=== PATIENT | male | born 1950 | race Caucasian/White ===

== ENCOUNTER → 2021-02-25 | Outpatient (CLI) | payer MEDICARE, OTHER ==
--- NOTE | 2021-02-25 11:07 | KCIC ---
MRI of the lumbar spine without contrast 02/25/2021 CLINICAL HISTORY: New onset of low back pain with leg pain and numbness for 2 weeks. TECHNIQUE: Unenhanced T1-weighted and T2-weighted sagittal and axial and inversion recovery sagittal images of the lumbar spine were obtained. FINDINGS: Minimal S-shaped curvature of the thoracolumbar spine is seen. Degenerative signal changes are seen involving all of the disks of the lumbar spine. Degenerative signal changes are seen within the marrow surrounding these discs. A 7 mm hemangioma is seen involving the L5 vertebral body. The co nus medullaris is normal morphology, position, and signal characteristics. At the L1-2 and L2-3 disc spaces there are minimal generalized disc bulges. Degenerative changes are seen involving the facet joints bilaterally. There is mild ligamentum flavum hypertrophy bilaterally. These findings when combined do not result in significant central spinal canal or neural foraminal s tenosis. At the L3-4 disc space there is a mild generalized disc bulge. Degenerative changes are seen involvin g the facet joints bilaterally. There is mild ligamentum flavum hypertrophy bilaterally. There is pro minence of the posterior epidural fat. These findings when combined result in mild central spinal can al stenosis. No neural foraminal stenosis is seen. At the L4-5 disc space there is a mild generalized disc bulge. Degenerative changes are seen involvin g the facet joints bilaterally. There is moderate ligamentum flavum hypertrophy bilaterally. There is prominence of the posterior vertebral fat. These findings when combined result in mild to moderate c entral spinal canal stenosis. No neural foraminal stenosis is seen. At the L5-S1 disc space there is a minimal generalized disc bulge. Degenerative changes are seen invo lving the facet joints bilaterally. There is mild ligamentum flavum hypertrophy bilaterally. These fi ndings when combined do not result in significant central spinal canal or neural foraminal stenosis. IMPRESSION: The changes of degenerative disc disease are seen throughout the lumbar spine. These find ings result in mild central spinal canal stenosis at L3-4 and mild to moderate central spinal canal s tenosis at L4-5. No neural foraminal stenosis is seen. Electronically signed by: Bryce Hatfield MD (02/25/2021 11:04 AM) [id number]
== END ==
LOC: KCIC MRI 09:05
PROVIDERS: ATTEND Family Medicine
DX: M51.16 Intervertebral disc disorders with radiculopathy, lumbar region (principal); M48.061 Spinal stenosis, lumbar region without neurogenic claudication
CPT/HCPCS: 72148

== ENCOUNTER → 2021-03-16 | Outpatient (CLI) | payer MEDICARE, OTHER ==
[~2021-03-16] MED LIST: ASCO500C PO; ASPI-630 PO; GARL10002 PO; IOHEXOL 180 MG/ML 10 ML VIAL. ONE; MULT-690 PO; OMEG1CAP6 PO; VITA1TAB19 PO; methylPREDNISolone ACETATE 40 MG/ML VIAL. ONE; methylPREDNISolone ACETATE 80 MG/ML VIAL. ONE
--- NOTE | 2021-03-16 14:17 | PDOC1 ---
INITIAL PAIN CONSULT DATE OF SERVICE: DOS: DATE: 03/16/21 TIME: 14:11 CHIEF COMPLAINT: Chief Complaint: Low back and right lower extremity pain HISTORY OF PRESENT ILLNESS: 70-year-old male presents with history of pain low back right lower extremity since early January 2021 not the result of any specific injury or accident that he is aware of, but has significant pain increasing in the low back and right lower extremity rating the posterior gluteus posterior lateral thigh lateral anterior thigh anteromedial thigh medial lower leg and calf into the foot and toes especially the great toe on the right side. Patient reports it gets worse with walking standing better with sitting or laying down generally does not awaken her from sleep at night but can patient reports it does not affect his bowel bladder control he can only walk about 1 mile usually walks 5 miles a day so it is affecting his walking significantly. Patient tried Aleve as well as tramadol tramadol does help relieve his not he is done physical therapy since November of this year and still does the exercises involved with that which she feels does help to a moderate extent. Patient reports pain is intermittent intensity changes during the day worse with standing walking changing positions better with sitting or laying down tingling pain in the low back and right leg with numbness radiating pain that can be cramping and aching in the back as well as in the leg patient rates disability rating 0-10 10 being the worst is a 6 with family home responsibilities 8 with recreation and sexual activity 5 with social activity to a self-care and 5 with life support activities. Patient did have a MRI scan lumbar spine showing changes of degenerative disc disease throughout lumbar spine resulting in mild central spinal canal stenosis L3-4 mild to moderate central spinal canal stenosis at L4-5. Patient reports no overt motor loss but significant fatigability of the right lower extremity specially with walking. PAST MEDICAL HISTORY: PMH: Irregular heart rhythm, hearing loss PREVIOUS SURGERIES: Past Surgical Hx: None CURRENT MEDICATIONS: Current Meds: Active Scripts Medications Dose Route/Sig Max Daily Dose Days Date Category Fish Oil 1,000 Mg Capsule (Waldron-3 Fatty Acids/Fish Oil) 1 Each Capsule 1 Each PO Q2WKS 03/16/21 Reported Aspirin 81 Mg Tab.chew 1 Tab PO Q2WKS 03/16/21 Reported Garlic 1,000 Mg Capsule 1,000 Mg PO DAILY 03/16/21 Reported Vitamin C (Ascorbic Acid) 500 Mg Capsule.er 1,000 Mg PO DAILY 03/16/21 Reported B Complex (Vitamin B Complex) 1 Each Tablet 1 Tab PO DAILY 30 03/16/21 Reported Centrum Silver Men Tablet (Multivit-Min/FA/Lycopen/Lutein) 1 Each Tablet 1 Each PO DAILY 03/16/21 Reported ALLERGIES; Allergies: Coded Allergies: No Known Drug Allergies (Unverified , 04/13/20) FAMILY HISTORY: Family Hx: Cancers, leukemia SOCIAL HISTORY: Social Hx: Patient does not juaquin alcohol does not smoke or use any illegal illicit or recreational drugs is single lives locally in [facility] and is currently retired. REVIEW OF SYSTEMS: ROS: Positive for those items mentioned in history of present illness, all systems are reviewed, otherwise negative ,and are complete full and well-documented on patient's chart. PHYSICAL EXAM: VS: Blood pressure is 137/75 pulse 83 respirations 18 temperature 97.9 F, 5'11" inches weight 266 pounds PE: PHYSICAL EXAMINATION: GENERAL: The patient is awake, alert, oriented, appropriate, very pleasant in demeanor HEENT: Shows normocephalic, atraumatic. Extraocular movements are intact and symmetrical. Oral cavity: Mucous membranes moist and pink. Dentition is intact. NECK: Shows anterior throat supple without palpable lymphadenopathy noted. Swallow reflex symmetrical. CHEST: Shows normal on inspection. Breath sounds are clear bilaterally, distant but no rales or rhonchi. HEART: Shows S1, S2 clear. No murmurs auscultated. ABDOMEN: Soft, nontender, nondistended, obese. No palpable organomegaly is noted. BACK: Shows spine grossly in the midline. Normal-appearing cervical lordotic curvature. There is mildly increased thoracic kyphosis, some flattening of the lumbar lordotic curvature. Lumbar paraspinous muscles show symmetrical on inspection, on palpation shows some moderate tenderness diffusely throughout the upper, middle and lower distribution of the paraspinous muscles bilaterally and also into the lower thoracic paraspinous musculature, firm and tender, but without specific trigger points, without radiation of pain. The patient has good rotational motion of the lumbar spine, both laterally as well as extension and flexion without significant difficulty. No tenderness over the spinous pr ocesses, sacrum or sacroiliac regions. EXTREMITIES: Lower extremities show deep tendon reflexes 2+ in the patellar and tendo calcaneus tendons. Motor exam is 4 on a scale of 5 with right dorsiflexion, extension, quadriceps and hamstring flexion and 5/5 on the left. Peripheral pulses are 1+ posterior tibial. No peripheral edema is noted bilaterally. Lower extremities are warm and dry to touch, equal in color and appearance. Straight leg raise noted to be mildly positive on the right about 45 degrees, left side is negative. Gaenslen's and Arley's maneuvers are negative as well. The patient is able to stand, stand on his toes that significant difficulty or loss of balance, walks with a normal-appearing gait does not appear to favor the right or left lower extremity significantly on a short walk in the office today, is not use any assistive devices to ambulate. SKIN: Shows warm and dry, good turgor. No edema. No sores, rashes or bruising throughout. IMPRESSION: Impression: 70-year-old male with proximate 2-month history increasing pain low back right lower extremity radicular fashion. MRI scan lumbar spine as noted Hearing loss Irregular heartbeat history Plan: Options were discussed with the patient including conservative medical management physical therapies and interventional techniques. Patient would like to pursue interventional techniques. We discussed a lumbar epidural steroid injection description as well as anatomical models to describe the procedure. Risks were discussed including but not limited to: Bleeding, infection, possibility of epidural hematoma and subsequent neurological compromise, dural puncture, headaches, spinal cord and/or nerve damage, side effects of steroid medication, and poor results regarding pain control. Patient understands and wished to proceed. Patient will return to the clinic in approximately 2 weeks for follow-up, was counseled as to return appointment activity level and side effects to be aware of. Procedure is lumbar epidural steroid injection under local anesthetic using sterile prep and drape at the L4-5 level using C-arm fluoroscopic guidance in both AP and lateral views medications injected is 120 mg Depo-Medrol +10mL preservative-free normal saline and 2 mL contrast- condition at discharge is stable patient tolerated procedure well had no complications. NICOLE QUINTANA MD Mar 16, 2021 14:17
== END | disposition home or self-care (01) ==
LOC: PNCL 09:12
PROVIDERS: ATTEND Anesthesiology
DX: M54.5 Low back pain (principal); M79.604 Pain in right leg; Z79.82 Long term (current) use of aspirin; Z79.899 Other long term (current) drug therapy
CPT/HCPCS: 62323; J1030; J1040; Q9965

== ENCOUNTER → 2021-04-05 | Outpatient (CLI) | payer MEDICARE, OTHER ==
[~2021-04-05] MED LIST changes: -IOHEXOL 180 MG/ML 10 ML VIAL. ONE; -methylPREDNISolone ACETATE 40 MG/ML VIAL. ONE; -methylPREDNISolone ACETATE 80 MG/ML VIAL. ONE
--- NOTE | 2021-04-05 09:02 | PDOC ---
Progress Note - Pain Clinic Date of Service: DOS: DATE: 04/05/21 TIME: 08:59 Diagnosis: Dx: Lumbar radiculopathy with lumbar degenerative disease and lumbar spinal stenosis History or Present Illness: HPI: 70-year-old male returns for follow-up status post lumbar epidural steroid injection x1. Patient reports 98% improvement in his low back and right lower extremity pain. Patient reports he been increase his activity with greater ease and comfort walking greater distances has been walking about 4 miles a day now very comfortably. Patient reports occasionally has some numbness in his right foot but it is temporary patient reports he is sleeping well at night increase his distance walking doing household activities travel with greater ease and comfort and is very pleased with the progress patient reports his pain is a 1 on scale 10 is worst least and average to is 0-1 and is a 1 today patient reports is tingling in the foot on and off in intensity again much improved he is very pleased with his progress thus far. Patient reports no new motor or sensory deficits no new bowel or bladder incontinence. Physical Exam: VS: Blood pressure is 140/85 pulse 79 respirations 18 temperature 98.5 F weight is 219 PE: PHYSICAL EXAMINATION: GENERAL: The patient is awake, alert, oriented, appropriate, very pleasant demeanor HEENT: Shows normocephalic, atraumatic. Extraocular movements are intact and symmetrical. Oral cavity: Mucous membranes moist and pink. Dentition is intact. CHEST: Shows normal on inspection. Breath sounds are clear bilaterally. HEART: Shows S1, S2 clear. No murmurs auscultated. ABDOMEN: Soft, nontender, nondistended, obese. No palpable organomegaly is noted. BACK: Shows spine grossly in the midline. Normal-appearing cervical lordotic curvature. There is slightly increased thoracic kyphosis, some minor flattening of the lumbar lordotic curvature. Lumbar paraspinous muscles show symmetrical on inspection, on palpation shows some moderate tenderness diffusely throughout the upper, middle and lower distribution of the paraspinous muscles, but without specific trigger points, without radiation of pain. The patient has good rotational motion of the lumbar spine, both laterally as well as extension and flexion without significant difficulty. EXTREMITIES: Lower extremities show deep tendon reflexes 2+ in the patellar and tendo calcaneus tendons. Motor exam is 4 on a scale of 5 with right dorsiflexion, extension, quadriceps and hamstring flexion and []/5 on the left. Peripheral pulses are 1+ posterior tibial. No peripheral edema is noted bilaterally. Lower extremities are warm and dry to touch, equal in color and appearance. SKIN: Shows warm and dry, good turgor. No edema. No sores, rashes or bruising throughout. Procedure: Procedure: Options were discussed with patient. Patient chart reviewed his current medication regimen updated current view of systems updated today as well. We will hold any further injections at this time as patient has significant improvement at this time. Patient was encouraged to maintain stretching strength and exercise as well as activity as tolerated and continue with walking as tolerated. Patient will return at this time on as-needed basis. Medication Injected: Med Injected: None Condition at Discharge: Condition at Discharge: Condition at discharge is stable. NICOLE QUINTANA MD Apr 05, 2021 09:02
== END | disposition home or self-care (01) ==
LOC: PNCL 08:25
PROVIDERS: ATTEND Anesthesiology
DX: M51.16 Intervertebral disc disorders with radiculopathy, lumbar region (principal); M48.061 Spinal stenosis, lumbar region without neurogenic claudication; Z79.82 Long term (current) use of aspirin; Z79.899 Other long term (current) drug therapy
CPT/HCPCS: 99212; G0463

== ENCOUNTER → 2021-05-03 | Outpatient (CLI) | payer MEDICARE, OTHER ==
[~2021-05-03] MED LIST changes: +IOHEXOL 180 MG/ML 10 ML VIAL. ONE; +methylPREDNISolone ACETATE 40 MG/ML VIAL. ONE; +methylPREDNISolone ACETATE 80 MG/ML VIAL. ONE
--- NOTE | 2021-05-03 09:24 | PDOC ---
Progress Note - Pain Clinic Date of Service: DOS: DATE: 05/03/21 TIME: : Diagnosis: Dx: Lumbar radiculopathy with lumbar degenerative disease and lumbar spinal stenosis History or Present Illness: HPI: 70-year-old male returns for follow-up status post lumbar epidural steroid traction x1. Patient did very well with about 90% improvement of the numbness still absent from his right lower extremity his leg is doing much better his back is still significantly painful is beginning to get more noticeable over the past week or 2 to do some increased activity at home repairing a deck around the house and has had some increased pain in the low back itself but the numbness is still significantly improved in the right lower extremity patient reports his pain is a 7 on scale 10 is worse over the past week for an average to its least is a 2 today patient reports it is sharp and dull alternating in the back on and off in intensity worse with activity bending standing or even standing for prolonged periods bending slightly such as at the sink or at work bench. Patient reports awakening from sleep occasionally but not more than once every 5 hours or so most nights patient reports initially doing much better with distance walking doing household activities with much greater ease and comfort with the pain is becoming more noticeable now in the back however the leg continues to be fairly well improved. Patient reports no new motor or sensory deficits no new bowel or bladder incontinence. Physical Exam: VS: Blood pressure is 130/75 pulse 87 respirations 18 temperature 98.0 F weight is 268 pounds PE: PHYSICAL EXAMINATION: GENERAL: The patient is awake, alert, oriented, appropriate, very pleasant in demeanor HEENT: Shows normocephalic, atraumatic. Extraocular movements are intact and symmetrical. Oral cavity: Mucous membranes moist and pink. Dentition is inta ct. NECK: Shows anterior throat supple without palpable lymphadenopathy noted. Swallow reflex symmetrical. CHEST: Shows normal on inspection. Breath sounds are clear bilaterally. HEART: Shows S1, S2 clear. No murmurs auscultated. ABDOMEN: Soft, nontender, nondistended. No palpable organomegaly is noted. BACK: Shows spine grossly in the midline. Normal-appearing cervical lordotic curvature. There is slightly increased thoracic kyphosis, some minor flattening of the lumbar lordotic curvature. Lumbar paraspinous muscles show symmetrical on inspection, on palpation shows some moderate tenderness diffusely throughout the upper, middle and lower distribution of the paraspinous muscles, but without specific trigger points, without radiation of pain. The patient has good rotational motion of the lumbar spine, both laterally as well as extension and flexion without significant difficulty. No tenderness over the spinous processes, sacrum or sacroiliac regions. EXTREMITIES: Lower extremities show deep tendon reflexes 2+ in the patellar and tendo calcaneus tendons. Motor exam is 4 on a scale of 5 with right dorsiflexion, extension, quadriceps and hamstring flexion and 5/5 on the left. Peripheral pulses are 1+ posterior tibial. No peripheral edema is noted bi laterally. Lower extremities are warm and dry to touch, equal in color and appearance. SKIN: Shows warm and dry, good turgor. No edema. No sores, rashes or bruising throughout. Procedure: Procedure: Options discussed with patient. Patient chart reviewed his current medication regimen updated current review of systems updated today as well. We will proceed with a second in the series lumbar epidural steroid injection today with fluoroscopic guidance. Risks were discussed including but not limited to: Bleeding, infection, possibility of epidural hematoma and subsequent neurological compromise, dural puncture, headaches, spinal cord and/or nerve damage, side effects of steroid medication, and poor results regarding pain c ontrol. Patient understands and wished to proceed. She will return to the clinic in approximate 2 weeks for follow-up, was counseled as return appointment activity level and side effects to be aware of. Medication Injected: Med Injected: Procedure is lumbar epidural steroid injection under local anesthetic using sterile prep and drape at the L4-5 level using C-arm fluoroscopic guidance in both AP and lateral views medications injected is 120 mg Depo-Medrol +10mL preservative-free normal saline and 2 mL contrast- condition at discharge is stable patient tolerated procedure well had no complications. Condition at Discharge: Condition at Discharge: Condition at discharge is stable, patient tolerated the procedure well and had no complications. NICOLE QUINTANA MD May 03, 2021 09:24
--- NOTE | 2021-05-03 09:24 | PDOC4 ---
Procedure Note: ICD 10 Code: ICD 10 Code: M54.16 M 40.07 M51.36 Procedure Note: Patient was consented for lumbar epidural steroid injection. Risks were discussed including but not limited to: Bleeding, infection, possibility of epidural hematoma and subsequent neurological compromise, dural puncture, headaches, spinal cord and/or nerve damage, side effects of steroid medication, and poor results regarding pain control. Patient understands and wished to proceed. Procedure is lumbar epidural steroid injection under local anesthetic using sterile prep and drape at the L4-5 level using C-arm fluoroscopic guidance in both AP and lateral views medications injected is 120 mg Depo-Medrol +10mL prese rvative-free normal saline and 2 mL contrast- condition at discharge is stable patient tolerated procedure well had no complications. NICOLE QUINTANA MD May 03, 2021 09:24
== END | disposition home or self-care (01) ==
LOC: PNCL 08:26
PROVIDERS: ATTEND Anesthesiology
DX: M51.16 Intervertebral disc disorders with radiculopathy, lumbar region (principal); M48.061 Spinal stenosis, lumbar region without neurogenic claudication; Z79.82 Long term (current) use of aspirin; Z79.899 Other long term (current) drug therapy
CPT/HCPCS: 62323; J1030; J1040; Q9965